=== PATIENT | male | born 1935 | race Caucasian/White ===

== ENCOUNTER → 2021-02-26 | Outpatient (CLI) | payer OTHER, SELFPAY ==
[~2021-02-26] MED LIST: ASPIR 8181 MG PO; CALCIUM CITRAT1 EAC1 PO; CENTRUM SILVER1 EAC1 PO; FLOMAX 0.4 MG0.4 MG PO; GLUCOPHAGE1000 MG PO; JANUVIA100 MG PO; LISINOPRIL2.5 MG PO; METOPROLOL SUC100 MG PO; NEURONTIN 100100 MG PO; PLAVIX 75 MG TA75 MG PO; PROTONIX 40 MG40 M1 PO
== END ==
LOC: MRI 14:00
DX: M50.30 Other cervical disc degeneration, unspecified cervical region (principal)
CPT/HCPCS: 72156; A9577

== ENCOUNTER → 2022-06-12 | Outpatient (CLI) | payer OTHER | LOC: EXRD 06-03 13:00 | DX: R09.89 Other specified symptoms and signs involving the circulatory and respiratory systems (principal) | CPT/HCPCS: 93925 ==